=== PATIENT | female | born 1950 | race Caucasian/White ===

== ENCOUNTER 2017-02-27 09:35 | Emergency (ER) | payer OTHER ==
[2017-02-27 12:00] LABS: ADD MAN DIFF? NO
[2017-02-27 12:23] LABS: WHITE BLOOD COUNT 8.1 10^3/ul (4.8-10.8)
[2017-02-27 12:23] LABS: BASOPHIL # 0.1 10^3/ul (0.0-0.1); BASOPHILS % 0.7 % (0.0-2.0); EOSINOPHILS # 0.2 10^3/ul (0.0-0.5); HEMATOCRIT 37.4 % (37.0-47.0); HEMOGLOBIN 12.1 g/dl (12.0-16.0); LYMPHOCYTES # 2.9 10^3/ul (0.8-2.9); LYMPHOCYTES % 35.5 % (15.0-51.0); MEAN CORPUSCULAR HGB CONC 32.4 g/dl (32.0-37.0); MEAN CORPUSCULAR VOLUME 83.5 fl (82.0-101.0); MEAN PLATELET VOLUME 9.8 fl (7.4-10.4); MONOCYTE # 0.5 10^3/ul (0.3-0.9); NEUTROPHIL # 4.4 10^3/ul (1.6-7.5); NEUTROPHILS % 54.6 % (39.0-77.0); PLATELET COUNT 257 10^3/UL (140-415); RED BLOOD COUNT 4.48 10^6/ul (4.20-5.40); RED CELL DISTRIBUTION WIDTH 14.2 % (11.5-14.5)
[2017-02-27 12:35] LABS: ANION GAP 11 (8-16); BLOOD UREA NITROGEN 10 mg/dl (7-20); CALCIUM 8.6 mg/dl (8.4-10.2); CARBON DIOXIDE 28 mmol/L (21-31); CHLORIDE 107 mmol/L (97-110); CREATININE 0.57 mg/dl (0.44-1.00); GLUCOSE 106 mg/dl (70-220); SODIUM 142 mmol/L (135-144)
[2017-02-27 12:45] LABS: TROPONIN-I < 0.012 ng/ml (0.00-0.12)
[2017-02-27] MEDS: SOD CHLORIDE 0.9% 500 ML IV (13:11)
[2017-02-27] MEDS: DIPHENHYDRAMINE 50 MG INJ IV (13:11)
[2017-02-27] MEDS: METOCLOPRAMIDE 10 MG INJ IV (13:11)
[2017-02-27] MEDS: KETOROLAC 30 MG INJ IV (13:11)
== END 2017-02-27 16:32 | disposition home or self-care (01) ==
LOC: E/R 09:35
DX: R51 Headache (principal); R20.2 Paresthesia of skin; R42 Dizziness and giddiness; I10 Essential (primary) hypertension; Z79.82 Long term (current) use of aspirin
CPT/HCPCS: 36415; 70450; 71045; 80048; 84484; 85025; 96374; 96375; 99285-25